=== PATIENT | female | born 1965 | race African-American/Black ===

== ENCOUNTER 2019-12-10 08:51 | Emergency (ER) | payer SELFPAY | END 2019-12-10 09:37 | disposition home or self-care (01) | LOC: NAV ERS 08:51 | DX: J01.90 Acute sinusitis, unspecified (principal); H65.92 Unspecified nonsuppurative otitis media, left ear; E78.5 Hyperlipidemia, unspecified; E78.00 Pure hypercholesterolemia, unspecified; I10 Essential (primary) hypertension; Z79.899 Other long term (current) drug therapy | CPT/HCPCS: 99283 ==